=== PATIENT | male | born 1945 | race African-American/Black ===

== ENCOUNTER 2019-09-08 15:07 | Inpatient (IN) ==
[2019-09-08] MEDS ORDERED: SODIUM CHLORIDE 0.9% 500 ML IV STA ×2 (15:28→17:22)
[2019-09-08 16:12] LABS: Basophils % 0.5 % (0.0-0.8); Eosinophils # 0.1 10*3/uL (0.0-0.87); Eosinophils % 2.3 % (0.00-10.9); Hematocrit 34.2 VOL% (42.0-52.0); Immature Granulocytes % 0.5 %; Immature Granulocytes Absolute 0.02 #; Lymphocytes # 0.3 10*3/uL (1.4-4.0); Lymphocytes % 5.9 % (21.2-54.2); Mean Corpuscular HGB Conc 32.2 GM/DL (32-36); Mean Corpuscular Volume 97.4 FL (87-102); Mean Platelet Volume 13.4 FL (9.6-12.0); Monocytes % 16.6 % (1.7-12.7); Neutrophils % 74.2 % (38.7-73.9); Platelet Count 74 T/CUMM (130-400); Red Blood Count 3.51 MC/CUMM (3.8-5.5); Red Cell Distribution Width 16.5 % (9.3-17.3); White Blood Count 4.4 T/CUMM (4-12)
[2019-09-08 16:41] LABS: Alanine Aminotransferase 13 U/L (16-61); Albumin 2.7 G/DL (3.4-5.0); Alkaline Phosphatase 108 U/L (45-117); Aspartate Amino Transferase 10 U/L (0-37); Blood Urea Nitrogen 19 MG/DL (7-18); Osmolality,Calculated 279.2 MOS/KG (273-304); Total Protein 6.6 G/DL (6.4-8.3)
[2019-09-08 16:42] LABS: Estimated Glom Filtration Rate 0 ML/MIN
[2019-09-08 16:44] LABS: Glucose 516 MG/DL (74-106)
[2019-09-08 17:44] LABS: ABG Base Excess 3.2 MMOL/L (-2.5-2.5); ABG HCO3 27.1 MMOL/L (20-26); ABG Oxygen Saturation 88.7 % (95-100); ABG PH 7.408 (7.35-7.45); ABG PO2 55.4 MM HG (80-95); ABG TCO2 25.5 MMOL/L (23-27)
[2019-09-08 17:56] LABS: Platelet Estimate Decreased
[2019-09-08] MEDS ORDERED: INSULIN REGULAR 100 UNIT/ML IV STA (19:38)
[2019-09-08] MEDS ORDERED: GLUCAGON 1 MG VIAL IM PRN (19:40)
[2019-09-08] MEDS ORDERED: ONDANSETRON 4 MG/2 ML VIAL IV PRN (19:40)
[2019-09-08] MEDS ORDERED: DEXTROSE 50% 25 GM/50 ML VIAL IV PRN (19:40)
[2019-09-08] MEDS ORDERED: hydrALAZINE 20 MG/1 ML VIAL IV PRN (19:40)
[2019-09-08] MEDS ORDERED: SODIUM CHLORIDE 0.9% 1,000 ML IV ONE (23:48)
[2019-09-08] MEDS: carvediloL 12.5 MG TABLET PO SCH (23:50)
[2019-09-09] MEDS: INSULIN LISPRO 100 UNIT/ML SUBCUT SCH ×4 (00:15→20:43)
[2019-09-09] MEDS: SODIUM CHLORIDE 0.9% 1,000 ML IV SCH ×2 (00:16→05:55)
[2019-09-09 05:36] LABS: Basophils % 0.4 % (0.0-0.8); Eosinophils # 0.2 10*3/uL (0.0-0.87); Eosinophils % 3.2 % (0.00-10.9); Hematocrit 31.8 VOL% (42.0-52.0); Hemoglobin 10.3 GM/DL (14.0-18.0); Immature Granulocytes % 0.4 %; Immature Granulocytes Absolute 0.02 #; Lymphocytes # 0.3 10*3/uL (1.4-4.0); Lymphocytes % 6.9 % (21.2-54.2); Mean Corpuscular HGB Conc 32.4 GM/DL (32-36); Mean Corpuscular Volume 97.8 FL (87-102); Mean Platelet Volume 13.4 FL (9.6-12.0); Monocytes % 14.9 % (1.7-12.7); Neutrophils % 74.2 % (38.7-73.9); Platelet Count 65 T/CUMM (130-400); Red Blood Count 3.25 MC/CUMM (3.8-5.5); Red Cell Distribution Width 16.5 % (9.3-17.3); White Blood Count 4.8 T/CUMM (4-12)
[2019-09-09 05:59] LABS: Calcium 8.9 MG/DL (8.5-10.1); Osmolality,Calculated 275.8 MOS/KG (273-304); Risk Ratio 1.94
[2019-09-09 07:14] LABS: Band Neutrophils 2 % (0-10); Eosinophils 1 % (0-10); Lymphocytes 8 % (20-55); Nucleated Red Blood Cells 38 (0-5); Segmented Neutrophils 72 % (50-85); Total Cells Counted 100
[2019-09-09 07:15] LABS: Hypochromasia Slight; Platelet Estimate Decreased
[2019-09-09] MEDS ORDERED: GLUCAGON 1 MG VIAL IM PRN (07:28)
[2019-09-09] MEDS ORDERED: DEXTROSE 50% 25 GM/50 ML VIAL IV PRN (07:28)
[2019-09-09] MEDS: PANTOPRAZOLE 40 MG VIAL IV SCH (10:26)
[2019-09-09] MEDS: carvediloL 25 MG TABLET PO SCH (10:26)
[2019-09-09 13:00] LABS: Hepatitis B Core IgM Quant 0.12 Index; Hepatitis B Surface Ag Quant < 0.10 Index; Hepatitis B Surface Ag Result Negative (Negative); Hepatitis C Virus Ab Quant 0.03 Index; Hepatitis C Virus Ab Result Negative (Negative)
[2019-09-09] MEDS ORDERED: INSULIN GLARGINE 100 UNIT/ML SUBCUT SCH (21:00)
[2019-09-10] MEDS ORDERED: DEXTROSE 10% 250 ML IV ONE (04:15)
[2019-09-10] MEDS: DEXTROSE 10% 250 ML BAG IV PRN ×2 (04:20→11:50)
[2019-09-10] MEDS: SODIUM CHLORIDE 0.9% 1,000 ML IV SCH ×2 (08:22→10:10)
[2019-09-10] MEDS: INSULIN LISPRO 100 UNIT/ML SUBCUT SCH ×4 (08:22→22:28)
[2019-09-10] MEDS: PANTOPRAZOLE 40 MG VIAL IV SCH (08:33)
[2019-09-10] MEDS: carvediloL 12.5 MG TABLET PO SCH (08:47)
[2019-09-10] MEDS ORDERED: INSULIN GLARGINE 100 UNIT/ML SUBCUT SCH ×2 (09:12→21:00)
[2019-09-11 05:32] LABS: Basophils % 0.2 % (0.0-0.8); Eosinophils # 0.2 10*3/uL (0.0-0.87); Eosinophils % 2.7 % (0.00-10.9); Hematocrit 35.3 VOL% (42.0-52.0); Hemoglobin 11.1 GM/DL (14.0-18.0); Immature Granulocytes % 0.4 %; Immature Granulocytes Absolute 0.04 #; Lymphocytes # 0.5 10*3/uL (1.4-4.0); Lymphocytes % 5.8 % (21.2-54.2); Mean Corpuscular HGB Conc 31.4 GM/DL (32-36); Mean Corpuscular Volume 99.2 FL (87-102); Mean Platelet Volume 13.9 FL (9.6-12.0); Monocytes % 10.2 % (1.7-12.7); Neutrophils % 80.7 % (38.7-73.9); Red Blood Count 3.56 MC/CUMM (3.8-5.5); Red Cell Distribution Width 17.2 % (9.3-17.3); White Blood Count 8.9 T/CUMM (4-12)
[2019-09-11 05:33] LABS: Platelet Count 70 T/CUMM (130-400)
[2019-09-11 05:56] LABS: Albumin 2.2 G/DL (3.4-5.0); Bilirubin,Total 0.6 MG/DL (0.2-1.0); Calcium 8.5 MG/DL (8.5-10.1); Total Protein 5.6 G/DL (6.4-8.3)
[2019-09-11 06:41] LABS: Hypochromasia 1+; Platelet Estimate Decreased
[2019-09-11] MEDS: INSULIN LISPRO 100 UNIT/ML SUBCUT SCH ×4 (09:19→21:24)
[2019-09-11] MEDS: carvediloL 12.5 MG TABLET PO SCH (09:23)
[2019-09-11] MEDS: PANTOPRAZOLE 40 MG VIAL IV SCH (09:23)
[2019-09-11] MEDS ORDERED: INSULIN GLARGINE 100 UNIT/ML SUBCUT SCH (21:00)
[2019-09-12] MEDS: DEXTROSE 10% 250 ML BAG IV PRN (02:01)
[2019-09-12 02:33] LABS: Basophils % 0.3 % (0.0-0.8); Eosinophils # 0.3 10*3/uL (0.0-0.87); Hematocrit 33.4 VOL% (42.0-52.0); Immature Granulocytes % 0.3 %; Immature Granulocytes Absolute 0.02 #; Lymphocytes # 0.5 10*3/uL (1.4-4.0); Lymphocytes % 6.6 % (21.2-54.2); Mean Corpuscular HGB Conc 32.9 GM/DL (32-36); Mean Corpuscular Volume 97.1 FL (87-102); Mean Platelet Volume 13.8 FL (9.6-12.0); Monocytes % 11.4 % (1.7-12.7); Neutrophils % 77.4 % (38.7-73.9); Red Blood Count 3.44 MC/CUMM (3.8-5.5); Red Cell Distribution Width 17.1 % (9.3-17.3); White Blood Count 7.5 T/CUMM (4-12)
[2019-09-12 02:36] LABS: Platelet Count 71 T/CUMM (130-400)
[2019-09-12 02:48] LABS: Albumin 2.5 G/DL (3.4-5.0); Bilirubin,Total 0.8 MG/DL (0.2-1.0); Calcium 8.5 MG/DL (8.5-10.1); Osmolality,Calculated 264.5 MOS/KG (273-304); Total Protein 5.9 G/DL (6.4-8.3)
[2019-09-12 04:03] LABS: Hypochromasia 1+; Platelet Estimate Decreased
[2019-09-12] MEDS: INSULIN LISPRO 100 UNIT/ML SUBCUT SCH ×2 (08:30→12:13)
[2019-09-12] MEDS: PANTOPRAZOLE 40 MG VIAL IV SCH (14:30)
[2019-09-12] MEDS: carvediloL 25 MG TABLET PO SCH (14:30)
[2019-09-12 16:16] VITALS: BP 142/65
== END 2019-09-12 16:32 | disposition home or self-care (01) | DRG 637 ==
LOC: EDUNIT# → EDBD → N.ED 15:07 → SUATTDRO 19:40 → N.EDINP 19:40 → N.5E 20:44 → N.4E 22:32
PROVIDERS: ADMIT Family Medicine; ATTEND Emergency Medicine

== ENCOUNTER 2019-12-26 17:52 | Inpatient (IN) ==
[2019-12-26 18:53] LABS: Basophils % 0.2 % (0.0-0.8); Eosinophils # 0.3 10*3/uL (0.0-0.87); Eosinophils % 2.2 % (0.00-10.9); Hemoglobin 11.6 GM/DL (14.0-18.0); Immature Granulocytes % 0.5 %; Immature Granulocytes Absolute 0.06 #; Lymphocytes # 0.5 10*3/uL (1.4-4.0); Lymphocytes % 3.8 % (21.2-54.2); Mean Corpuscular HGB Conc 33.1 GM/DL (32-36); Mean Corpuscular Volume 100.3 FL (87-102); Mean Platelet Volume 13.8 FL (9.6-12.0); Monocytes % 6.5 % (1.7-12.7); NRBC # 0.02 10*3/uL; Neutrophils % 86.8 % (38.7-73.9); Platelet Count 48 T/CUMM (130-400); Red Blood Count 3.49 MC/CUMM (3.8-5.5); Red Cell Distribution Width 18.5 % (9.3-17.3); White Blood Count 12.9 T/CUMM (4-12)
[2019-12-26 19:27] LABS: INR 1.4; PT Patient Result 14.6 SECS (9.8-11.9)
[2019-12-26 19:41] LABS: Eosinophils 1 % (0-10); Lymphocytes 5 % (20-55); Macrocytosis 1+; Nucleated Red Blood Cells 1 (0-5); Platelet Estimate Decreased; Polychromasia 1+; Segmented Neutrophils 90 % (50-85); Total Cells Counted 100
[2019-12-26 19:57] LABS: Alanine Aminotransferase 29 U/L (16-61); Albumin 2.4 G/DL (3.4-5.0); Alkaline Phosphatase 103 U/L (45-117); Aspartate Amino Transferase 24 U/L (0-37); Blood Urea Nitrogen 17 MG/DL (7-18); Calcium 8.7 MG/DL (8.5-10.1); Estimated Glom Filtration Rate 24 ML/MIN; Ferritin 1618.4 ng/ml (26-388); Glucose 416 MG/DL (74-106); Osmolality,Calculated 281.7 MOS/KG (273-304)
[2019-12-26 20:06] LABS: Troponin I 0.193 NG/ML (0.00-0.045)
[2019-12-26] MEDS ORDERED: SODIUM CHLORIDE 0.9% 500 ML IV STA (21:51)
[2019-12-26] MEDS ORDERED: guaiFENesin/DM ER 600-30 MG TABLET PO PRN (22:00)
[2019-12-26] MEDS ORDERED: DEXTROSE 50% 25 GM/50 ML VIAL IV PRN (22:00)
[2019-12-26] MEDS ORDERED: hydrALAZINE 20 MG/1 ML VIAL IV PRN (22:00)
[2019-12-26] MEDS ORDERED: GLUCAGON 1 MG VIAL IM PRN (22:00)
[2019-12-26] MEDS ORDERED: ACETAMINOPHEN 325 MG TABLET PO PRN (22:00)
[2019-12-26] MEDS ORDERED: NICOTINE 21 MG/24 HR PATCH TRANSDERM PRN (22:00)
[2019-12-26] MEDS ORDERED: diphenhydrAMINE CAP 25 MG CAPSULE PO PRN (22:00)
[2019-12-26] MEDS ORDERED: ONDANSETRON 4 MG/2 ML VIAL IV PRN (22:00)
[2019-12-26] MEDS ORDERED: MORPHINE 4 MG/1 ML VIAL IV PRN (22:00)
[2019-12-26] MEDS ORDERED: PIPERACILLIN/TAZOBACTAM 3,375 MG in SODIUM CHLORIDE 0.9% 100 ML IV STA (23:10)
[2019-12-27] MEDS: INSULIN REGULAR 100 UNIT/ML SUBCUT SCH ×4 (01:24→18:37)
[2019-12-27 03:49] LABS: Basophils % 0.2 % (0.0-0.8); Eosinophils # 0.2 10*3/uL (0.0-0.87); Eosinophils % 1.5 % (0.00-10.9); Hemoglobin 11.5 GM/DL (14.0-18.0); Immature Granulocytes % 0.4 %; Immature Granulocytes Absolute 0.05 #; Lymphocytes # 0.5 10*3/uL (1.4-4.0); Mean Corpuscular HGB Conc 32.9 GM/DL (32-36); Mean Corpuscular Volume 101.7 FL (87-102); Mean Platelet Volume 11.9 FL (9.6-12.0); Monocytes % 5.9 % (1.7-12.7); NRBC # 0.03 10*3/uL; Platelet Count 47 T/CUMM (130-400); Red Blood Count 3.44 MC/CUMM (3.8-5.5); Red Cell Distribution Width 18.6 % (9.3-17.3); White Blood Count 11.7 T/CUMM (4-12)
[2019-12-27 04:20] LABS: Band Neutrophils 1 % (0-10); Eosinophils 1 % (0-10); Lymphocytes 4 % (20-55); Segmented Neutrophils 91 % (50-85); Total Cells Counted 100
[2019-12-27 04:22] LABS: Anisocytosis 1+; Platelet Estimate Decreased; Target Cells Few
[2019-12-27] MEDS ORDERED: PROMETHAZINE INJ 12.5 MG in SODIUM CHLORIDE 0.9% 50 ML IV PRN (14:32)
[2019-12-27] MEDS ORDERED: PROMETHAZINE 25 MG/1 ML VIAL ONE (14:33)
[2019-12-28] MEDS: INSULIN REGULAR 100 UNIT/ML SUBCUT SCH ×4 (00:18→18:19)
[2019-12-29] MEDS: INSULIN REGULAR 100 UNIT/ML SUBCUT SCH ×5 (00:13→23:57)
[2019-12-29 03:23] LABS: Basophils % 0.3 % (0.0-0.8); Eosinophils # 0.5 10*3/uL (0.0-0.87); Eosinophils % 5.2 % (0.00-10.9); Hematocrit 36.4 VOL% (42.0-52.0); Hemoglobin 12.1 GM/DL (14.0-18.0); Immature Granulocytes % 0.3 %; Immature Granulocytes Absolute 0.03 #; Lymphocytes # 0.6 10*3/uL (1.4-4.0); Mean Corpuscular HGB Conc 33.2 GM/DL (32-36); Mean Corpuscular Volume 100.3 FL (87-102); Monocytes % 9.6 % (1.7-12.7); Neutrophils % 77.6 % (38.7-73.9); Platelet Count 40 T/CUMM (130-400); Red Blood Count 3.63 MC/CUMM (3.8-5.5); Red Cell Distribution Width 19.8 % (9.3-17.3); White Blood Count 8.8 T/CUMM (4-12)
[2019-12-29 03:36] LABS: INR 1.4; PT Patient Result 14.3 SECS (9.8-11.9)
[2019-12-29 04:18] LABS: Eosinophils 4 % (0-10); Lymphocytes 8 % (20-55); Segmented Neutrophils 82 % (50-85); Total Cells Counted 100
[2019-12-29 04:19] LABS: Anisocytosis 1+; Platelet Estimate Decreased; Target Cells Few
[2019-12-29] MEDS ORDERED: ceFAZolin 1,000 MG in SYRINGE 1 EACH IV ONE (08:00)
[2019-12-29] MEDS ORDERED: SODIUM CHLORIDE 0.9% 1,000 ML IV SCH (08:00)
[2019-12-29] MEDS ORDERED: propofoL 200 MG/20 ML VIAL IV ONE (09:00)
[2019-12-29] MEDS ORDERED: LIDOCAINE 2% 5 ML VIAL ONE (09:00)
[2019-12-29] MEDS ORDERED: ceFAZolin 2,000 MG in PREMIX 1 EACH IV ONE (14:48)
[2019-12-29] MEDS ORDERED: SODIUM CHLORIDE 0.9% 1,000 ML IV PRN (14:53)
[2019-12-30] MEDS: INSULIN REGULAR 100 UNIT/ML SUBCUT SCH ×3 (06:19→18:00)
[2019-12-30 06:26] LABS: Basophils % 0.3 % (0.0-0.8); Eosinophils # 0.3 10*3/uL (0.0-0.87); Hematocrit 36.6 VOL% (42.0-52.0); Hemoglobin 12.4 GM/DL (14.0-18.0); Immature Granulocytes % 0.3 %; Immature Granulocytes Absolute 0.03 #; Lymphocytes # 0.6 10*3/uL (1.4-4.0); Lymphocytes % 6.4 % (21.2-54.2); Mean Corpuscular HGB Conc 33.9 GM/DL (32-36); Mean Corpuscular Volume 99.7 FL (87-102); Mean Platelet Volume 13.5 FL (9.6-12.0); Monocytes % 13.1 % (1.7-12.7); NRBC # 0.02 10*3/uL; Neutrophils % 76.9 % (38.7-73.9); Red Blood Count 3.67 MC/CUMM (3.8-5.5); Red Cell Distribution Width 19.9 % (9.3-17.3)
[2019-12-30 06:29] LABS: Platelet Count 50 T/CUMM (130-400)
[2019-12-30 06:31] LABS: INR 1.2; PT Patient Result 13.1 SECS (9.8-11.9); Partial Thromboplastin Time 30.6 SECS (23.9-33.8)
[2019-12-30 06:45] LABS: Hypochromasia 1+; Macrocytosis 1+
[2019-12-30 06:46] LABS: Platelet Estimate Decreased; Target Cells Few
[2019-12-30 06:48] LABS: Calcium 9.4 MG/DL (8.5-10.1); Osmolality,Calculated 281.8 MOS/KG (273-304)
[2019-12-30] MEDS ORDERED: LIDOCAINE 1%/EPI INJ 20 ML VIAL ONE (11:33)
[2019-12-30] MEDS ORDERED: BUPIVACAINE MPF 0.25% 30 ML VIAL ONE (11:33)
[2019-12-30] MEDS ORDERED: SODIUM CHLORIDE 0.9% 250 ML IV SCH (12:30)
[2019-12-30] MEDS ORDERED: TISSUE ADHESIVE 1 EACH APPLICATOR TOP ONE (14:04)
[2019-12-30] MEDS ORDERED: fentaNYL 100 MCG/2 ML VIAL ONE (14:29)
[2019-12-30] MEDS ORDERED: ETOMIDATE 40 MG/20 ML VIAL IV ONE (14:29)
[2019-12-30] MEDS ORDERED: GLYCOPYRROLATE 0.4 MG/2 ML VIAL ONE (14:29)
[2019-12-30] MEDS ORDERED: DESFLURANE 1 UNIT/15 MINUTE INH ONE (14:29)
[2019-12-30] MEDS ORDERED: LIDOCAINE 2% 5 ML VIAL ONE (14:29)
[2019-12-30] MEDS ORDERED: ROCURONIUM 100 MG/10 ML VIAL IV ONE (14:30)
[2019-12-30] MEDS ORDERED: NEOSTIGMINE 10 MG/10 ML VIAL ONE (14:30)
[2019-12-30] MEDS: LACTATED RINGERS 1,000 ML IV SCH (20:10)
[2019-12-30 20:21] LABS: Basophils % 0.3 % (0.0-0.8); Eosinophils # 0.2 10*3/uL (0.0-0.87); Eosinophils % 2.2 % (0.00-10.9); Hematocrit 35.2 VOL% (42.0-52.0); Hemoglobin 11.5 GM/DL (14.0-18.0); Immature Granulocytes % 0.4 %; Immature Granulocytes Absolute 0.05 #; Lymphocytes # 0.6 10*3/uL (1.4-4.0); Lymphocytes % 5.6 % (21.2-54.2); Mean Corpuscular HGB Conc 32.7 GM/DL (32-36); Mean Corpuscular Volume 103.2 FL (87-102); Monocytes % 9.9 % (1.7-12.7); Neutrophils % 81.6 % (38.7-73.9); Platelet Count 65 T/CUMM (130-400); Red Blood Count 3.41 MC/CUMM (3.8-5.5); White Blood Count 11.2 T/CUMM (4-12)
[2019-12-30 20:30] LABS: Calcium 8.7 MG/DL (8.5-10.1); Osmolality,Calculated 280.8 MOS/KG (273-304)
[2019-12-31] MEDS: INSULIN REGULAR 100 UNIT/ML SUBCUT SCH ×3 (00:59→12:42)
[2019-12-31 05:42] LABS: Basophils % 0.5 % (0.0-0.8); Eosinophils # 0.4 10*3/uL (0.0-0.87); Hematocrit 31.8 VOL% (42.0-52.0); Hemoglobin 10.2 GM/DL (14.0-18.0); Immature Granulocytes % 0.3 %; Immature Granulocytes Absolute 0.03 #; Lymphocytes # 0.5 10*3/uL (1.4-4.0); Lymphocytes % 5.1 % (21.2-54.2); Mean Corpuscular HGB Conc 32.1 GM/DL (32-36); Mean Corpuscular Volume 104.3 FL (87-102); Mean Platelet Volume 12.7 FL (9.6-12.0); Monocytes % 10.1 % (1.7-12.7); Red Blood Count 3.05 MC/CUMM (3.8-5.5); Red Cell Distribution Width 20.1 % (9.3-17.3); White Blood Count 8.8 T/CUMM (4-12)
[2019-12-31 05:44] LABS: Platelet Count 66 T/CUMM (130-400)
[2019-12-31 06:13] LABS: Calcium 8.7 MG/DL (8.5-10.1); Osmolality,Calculated 283.5 MOS/KG (273-304)
[2019-12-31 06:28] LABS: Hypochromasia 1+; Platelet Estimate Decreased
[2019-12-31] MEDS: LACTATED RINGERS 1,000 ML IV SCH (08:05)
[2019-12-31 12:52] LABS: Basophils % 0.3 % (0.0-0.8); Eosinophils # 0.4 10*3/uL (0.0-0.87); Eosinophils % 3.3 % (0.00-10.9); Hematocrit 33.2 VOL% (42.0-52.0); Hemoglobin 10.7 GM/DL (14.0-18.0); Immature Granulocytes % 0.5 %; Immature Granulocytes Absolute 0.05 #; Lymphocytes # 0.6 10*3/uL (1.4-4.0); Lymphocytes % 5.7 % (21.2-54.2); Mean Corpuscular HGB Conc 32.2 GM/DL (32-36); Mean Corpuscular Volume 105.4 FL (87-102); Mean Platelet Volume 12.6 FL (9.6-12.0); Neutrophils % 79.2 % (38.7-73.9); Platelet Count 75 T/CUMM (130-400); Red Blood Count 3.15 MC/CUMM (3.8-5.5); Red Cell Distribution Width 20.4 % (9.3-17.3); White Blood Count 11.1 T/CUMM (4-12)
[2019-12-31 13:41] VITALS: BP 143/91
== END 2019-12-31 14:44 | disposition hospice, home (50) | DRG 335 ==
LOC: N.ED 17:52 → N.EDINP 17:52 → N.4E 12-27 00:24
PROVIDERS: ADMIT Internal Medicine Geriatric Medicine; ATTEND Internal Medicine Geriatric Medicine